=== PATIENT | male | born 1950 | race Caucasian/White ===

== ENCOUNTER 2025-02-28 16:59 | Inpatient (IN) | payer OTHER ==
--- NOTE | 2025-02-28 18:03 | EDPHYS ---
Physician Documentation [facility] Name: Jose Carlos Hurst Age: 74 yrs Sex: Male : 1950 Arrival Date: 02/28/2025 Time: 16:59 Bed 5 Private MD: ED Physician Bernard Mccord HPI: 02/28 17:42 This 74 yrs old Male presents to ER via Ambulatory with complaints of viraj Shortness Of Breath, Leg Swelling. 17:42 The patient has shortness of breath at rest, with light activity. Onset: The viraj symptoms/episode began/occurred 3 day(s) ago. Duration: The symptoms are continuous, and are unchanged since they started. The patient's shortness of breath is aggravated by walking, is alleviated by rest. Associated signs and symptoms: Pertinent positives: non-productive cough. Severity of symptoms: At their worst the symptoms were mild moderate in the emergency department the symptoms are unchanged. Historical: - Allergies: 17:11 No Known Allergies; ss - PMHx: 17:11 Hypertensive disorder; Diabetes mellitus; Agent orange exposure; CAD; High cholesterol; ss - PSHx: 17:11 Back sx; Angioplasty; ss - Immunization history:: Adult Immunizations up to date. - Infectious Disease History:: Denies. - Social history:: Smoking status: Patient denies any tobacco usage or history of. ROS: 17:43 Constitutional: Negative for fever, chills, and weight loss, Eyes: Negative for injury, viraj pain, redness, and discharge, ENT: Negative for injury, pain, and discharge, Neck: Negative for injury, pain, and swelling, Cardiovascular: Negative for chest pain, palpitations, and edema, Respiratory: Negative for shortness of breath, cough, wheezing, and pleuritic chest pain, Abdomen/GI: Negative for abdominal pain, nausea, vomiting, diarrhea, and constipation, Back: Negative for injury and pain, : Negative for injury, bleeding, discharge, and swelling, Skin: Negative for injury, rash, and discoloration, Neuro: Negative for headache, weakness, numbness, tingling, and seizure, Psych: Negative for depression, anxiety, suicide ideation, homicidal ideation, and hallucinations, Allergy/Immunology: Negative for hives, rash, and allergies, Endocrine: Negative for neck swelling, polydipsia, polyuria, polyphagia, and marked weight changes, Hematologic/Lymphatic: Negative for swollen nodes, abnormal bleeding, and unusual bruising, 17:43 MS/extremity: Positive for pain, swelling, tenderness, of the left leg, Exam: 17:43 Constitutional: This is a well developed, well nourished patient who is awake, alert, viraj and in no acute distress. Head/Face: Normocephalic, atraumatic. Eyes: Pupils equal round and reactive to light, extra-ocular motions intact. Lids and lashes normal. Conjunctiva and sclera are non-icteric and not injected. Cornea within normal limits. Periorbital areas with no swelling, redness, or edema. ENT: Nares patent. No nasal discharge, no septal abnormalities noted. Tympanic membranes are normal and external auditory canals are clear. Oropharynx with no redness, swelling, or masses, exudates, or evidence of obstruction, uvula midline. Mucous membranes moist. Neck: Trachea midline, no thyromegaly or masses palpated, and no cervical lymphadenopathy. Supple, full range of motion without nuchal rigidity, or vertebral point tenderness. No Meningismus. Chest/axilla: Normal chest wall appearance and motion. Nontender with no deformity. No lesions are appreciated. Cardiovascular: Regular rate and rhythm with a normal S1 and S2. No gallops, murmurs, or rubs. Normal PMI, no JVD. No pulse deficits. Respiratory: Lungs have equal breath sounds bilaterally, clear to auscultation and percussion. No rales, rhonchi or wheezes noted. No increased work of breathing, no retractions or nasal flaring. Abdomen/GI: Soft, non-tender, with normal bowel sounds. No distension or tympany. No guarding or rebound. No evidence of tenderness throughout. Back: No spinal tenderness. No costovertebral tenderness. Full range of motion. Male : Normal genitalia with no discharge or lesions. Skin: Warm, dry with normal turgor. Normal color with no rashes, no lesions, and no evidence of cellulitis. Neuro: Awake and alert, GCS 15, oriented to person, place, time, and situation. Cranial nerves II-XII grossly intact. Motor strength 5/5 in all extremities. Sensory grossly intact. Cerebellar exam normal. Normal gait. Psych: Awake, alert, with orientation to person, place and time. Behavior, mood, and affect are within normal limits. 17:43 ECG was reviewed by the Attending Physician. 17:43 Musculoskeletal/extremity: ROM: intact in all extremities, full active range of motion, full passive range of motion, Circulation is intact in all extremities. Sensation intact. Compartment Syndrome exam of affected extremity: is normal. Weight bearing: able to fully bear weight, DVT Exam: negative Homans' sign noted on exam, no appreciated bluish discoloration, no erythema, no increased warmth, pain, swelling, tenderness, Vital Signs: 17:08 BP 151 / 85; Pulse 100; Resp 19; Temp 98(O); Pulse Ox 98% on R/A; Weight 87.54 kg; ss Height 5 ft. 9 in. ; Pain 3/10; 19:26 BP 158 / 80; Pulse 93; Resp 20; Temp 99.3; Pulse Ox 98% on R/A; Pain 0/10; bm8 20:54 BP 156 / 75; Pulse 95; Resp 18; Temp 99.3; Pulse Ox 98% ; Pain 0/10; bm8 17:08 Body Mass Index 28.50 (87.54 kg, 175.26 cm) ss 17:08 Pain Scale: Adult ss 19:26 Pain Scale: Adult bm8 20:54 Pain Scale: Adult bm8 Homer Coma Score: 19:26 Eye Response: spontaneous(4). Motor Response: obeys commands(6). Verbal Response: bm8 oriented(5). Total: 15. 20:54 Eye Response: spontaneous(4). Motor Response: obeys commands(6). Verbal Response: bm8 oriented(5). Total: 15. MDM: 17:10 Medical Screening Exam initiated viraj 17:45 Differential diagnosis: Anemia CHF exacerbation, Chronic Obstructive Pulmonary Disease viraj Myocardial Infarction pneumonia, pulmonary edema, Pulmonary Embolism reactive airway disease, Sepsis Unstable Angina. Antibiotic administration: Not indicated. Immunization status: Pneumococcal vaccine: within last 5 years. Influenza vaccine: within last 5 years. Data reviewed: vital signs, nurses notes, lab test result(s), EKG, radiologic studies, CT scan, plain films. I considered the following discharge prescriptions or medication management in the emergency department Medications were administered in the Emergency Department. See MAR. Independent interpretation of the following test(s) in the Emergency Department EKG: See my EKG interpretation above. 18:08 ED course: DR BYRD TO CHECK LABS, CT ANGIO. [facility] 02/28 17:11 Order name: Basic Metabolic Panel; Complete Time: 18:32 [facility] 02/28 17:11 Order name: CBC with Diff; Complete Time: 18:21 [facility] 02/28 17:11 Order name: LFT's; Complete Time: 18:32 [facility] 02/28 17:11 Order name: Magnesium; Complete Time: 18:32 [facility] 02/28 17:11 Order name: NT PRO-BNP; Complete Time: 18:32 [facility] 02/28 17:11 Order name: PT-INR; Complete Time: 18:21 [facility] 02/28 17:11 Order name: Troponin HS; Complete Time: 18:32 [facility] 02/28 17:11 Order name: Lipase; Complete Time: 18:32 [facility] 02/28 17:11 Order name: Urinalysis w/ reflexes viraj 02/28 19:10 Order name: Magnesium EDMS 02/28 19:10 Order name: Phosphorus EDMS 02/28 19:10 Order name: Basic Metabolic Panel EDDE 02/28 19:10 Order name: Basic Metabolic Panel EDMS 02/28 19:10 Order name: CBC with Automated Diff EDMS 02/28 19:10 Order name: CBC with Automated Diff EDMS 02/28 19:31 Order name: Ptt, Activated bm8 02/28 17:11 Order name: XRAY Chest (1 view); Complete Time: 18:21 [facility] 02/28 17:11 Order name: US Extremity Venous W Compression Darryl; Complete Time: 18:21 viraj 02/28 17:42 Order name: CT Chest For PE Angio; Complete Time: 18:57 [facility] 02/28 18:57 Interpretation: Abnormal: PE, no right heart strain. sw6 02/28 19:11 Order name: Echo with Doppler EDDE 02/28 19:10 Order name: Physical Therapy Consult EDDE 02/28 17:11 Order name: Cardiac monitoring; Complete Time: 17:41 viraj 02/28 17:11 Order name: EKG - Nurse/Tech; Complete Time: 17:54 [facility] 02/28 17:11 Order name: IV Saline Lock; Complete Time: 17:54 [facility] 02/28 17:11 Order name: Labs collected and sent; Complete Time: 17:55 02/28 17:11 Order name: O2 Per Protocol; Complete Time: 17:41 [facility] 02/28 17:11 Order name: O2 Sat Monitoring; Complete Time: 17:41 viraj 02/28 17:11 Order name: IV Saline Lock - Large Bore; Complete Time: 17:54 viraj 02/28 17:58 Order name: Misc. Order: STRICT BED REST; Complete Time: 18:00 viraj EC:43 Rate is 104 beats/min. Rhythm is regular. QRS [place] is Normal. [place] interval is normal. viraj QRS interval is normal. QT interval is normal. No Q waves. T waves are Normal. No ST changes noted. Clinical impression: NSR w/ Non-specific ST/T Changes and LVH. Interpreted by me. Reviewed by me. Administered Medications: 18:31 Drug: Enoxaparin Sub-Q 90 mg Sub-Q once Route: Sub-Q; Site: right lower abdomen; bp 20:56 Follow up: Response: No adverse reaction bm8 18:31 Drug: Pantoprazole IVP 40 mg IVP once Route: IVP; Site: right forearm; bp 20:56 Follow up: Response: No adverse reaction bm8 18:32 Drug: Heparin (DVT/PE- Bolus per protocol) - HEParin IVP 80 units/kg IVP once; Max bp 8,000 units {Co-Signature: db (Talia Power RN).} Route: IVP; Site: right forearm; 20:56 Follow up: Response: No adverse reaction bm8 18:57 Not Given (Physician Discretion): ns 0.9% 1000 ml IV at 1000 ml once; to be given as a bp bolus over 60 minutes 18:57 Not Given (Physician Discretion): ns 0.9% 1000 ml IV at 125 ml/hr once bp 18:57 Not Given (Physician Discretion): Mucomyst - [id number] mg PO once bp Disposition: 18:30 Critical Care:. viraj Disposition Summary: 02/28/25 18:03 Hospitalization Ordered Notes: Hospitalization Status: Inpatient Admission viraj Provider: Prince viraj Tenorio Location: Telemetry/MedSurg (Inpatient) viraj Condition: Fair viraj Problem: new viraj Symptoms: are unchanged viraj Bed/Room Type: Standard [facility] Room Assignment: 221(02/28/25 19:18) ss Diagnosis - Dyspnea viraj - Acute embolism and thrombosis of deep veins of lower extremity - EXTENSIVE viraj - Unspecified kidney failure viraj - Pulmonary embolism without acute cor pulmonale sb4 Forms: - Medication Reconciliation Form viraj - SBAR form viraj - Leadership Thank You Letter viraj Critical care time excluding procedures: 18:30 Critical care time: Bedside Care: 25 minutes, Consultation: 15 minutes, Family viraj Intervention: 10 minutes. Total time: 50 minutes Signatures: Dispatcher [employer] EDMS Bernard Mccord MD MD cha Blanchard, Shelby, RN RN ss Don Kern RN RN Misty Rodriguez PAKarenC PA-C sb4 Oneli Alejandro RN RN bm8 Colette Byrd MD MD sw6 Talia Power RN db Corrections: (The following items were deleted from the chart) 17:12 17:12 BASIC METABOLIC PANEL+C.LAB.BRZ ordered. EDMS EDMS 17:12 17:12 CBC+H.LAB.BRZ ordered. EDMS EDMS 17:12 17:12 HEPATIC FUNCTION+C.LAB.BRZ ordered. EDMS EDMS 17:12 17:12 MAGNESIUM+C.LAB.BRZ ordered. EDMS EDMS 17:12 17:12 PROBNP+C.LAB.BRZ ordered. EDMS EDMS 17:12 17:12 PROTIME (+INR)+COAG.LAB.BRZ ordered. EDMS EDMS 17:12 17:12 Troponin High Sensitivity+C.LAB.BRZ ordered. EDMS EDMS 17:12 17:12 LIPASE+C.LAB.BRZ ordered. EDMS EDMS 17:12 17:12 Urinalysis+U.LAB.BRZ ordered. EDMS EDMS 17:12 17:12 Chest Single View+RAD.RAD.BRZ ordered. EDMS EDMS 17:12 17:12 Extrem Venous W Compression Darryl+US.RAD.BRZ ordered. EDMS EDMS 17:42 17:42 Chest For PE Angio+CT.RAD.BRZ ordered. EDMS EDMS 18:57 18:57 Abnormal. sw6 sw6 19:18 18:03 viraj
--- NOTE | 2025-02-28 18:03 | ER ---
Nurse's Notes [facility] Name: Jose Carlos Hurst Age: 74 yrs Sex: Male : 1950 Arrival Date: 02/28/2025 Time: 16:59 Bed 5 Private MD: Diagnosis: Dyspnea;Acute embolism and thrombosis of deep veins of lower extremity-EXTENSIVE;Unspecified kidney failure;Pulmonary embolism without acute cor pulmonale Presentation: 02/28 17:08 Chief complaint: Patient states: Cardiac cath 10 days ago. Pt reports he drove 5 hours ss 2 days ago and began experiencing swelling to his L leg. Pt also reports SOB that began yesterday. Coronavirus screen: Client denies travel out of the [place] in the last 14 days. Ebola Screen: Patient denies exposure to infectious person. Patient denies travel to an Ebola-affected area in the 21 days before illness onset. Initial Sepsis Screen: Does the patient meet any 2 criteria? No. Patient's initial sepsis screen is negative. Does the patient have a suspected source of infection? No. Patient's initial sepsis screen is negative. Risk Assessment: Do you want to hurt yourself or someone else? Patient reports no desire to harm self or others. Onset of symptoms was February 26, 2025. 17:08 Method Of Arrival: Ambulatory ss 17:08 Acuity: SINDI 3 ss Triage Assessment: 17:15 General: Appears in no apparent distress. comfortable, Behavior is calm, cooperative, bp appropriate for age. Pain: Denies pain. EENT: No deficits noted. Neuro: No deficits noted. Cardiovascular: No deficits noted. Respiratory: Reports shortness of breath Onset: The symptoms/episode began/occurred yesterday, the patient has mild shortness of breath. GI: No signs and/or symptoms were reported involving the gastrointestinal system. : No signs and/or symptoms were reported regarding the genitourinary system. Derm: No deficits noted. Musculoskeletal: Swelling present in left leg. Historical: - Allergies: 17:11 No Known Allergies; ss - PMHx: 17:11 Hypertensive disorder; Diabetes mellitus; Agent orange exposure; CAD; High cholesterol; ss - PSHx: 17:11 Back sx; Angioplasty; ss - Immunization history:: Adult Immunizations up to date. - Infectious Disease History:: Denies. - Social history:: Smoking status: Patient denies any tobacco usage or history of. Screenin:57 [facility] ED Fall Risk Assessment (Adult) History of falling in the last 3 months, bp including since admission No falls in past 3 months (0 pts) Confusion or Disorientation No (0 pts) Intoxicated or Sedated No (0 pts) Impaired Gait No (0 pts) Mobility Assist Device Used No (0 pt) Altered Elimination No (0 pt) Score/Fall Risk Level 0 - 2 = Low Risk Oriented to surroundings. Abuse screen: Denies threats or abuse. Denies injuries from another. Nutritional screening: No deficits noted. Tuberculosis screening: No symptoms or risk factors identified. Assessment: 17:15 General: Appears in no apparent distress. comfortable, Behavior is calm, cooperative, bp appropriate for age. Cardiovascular: Rhythm is sinus rhythm. Respiratory: Airway is patent Respiratory effort is even, unlabored, Breath sounds are coarse. 19:26 General: Appears in no apparent distress. comfortable, Behavior is calm, cooperative, bm8 appropriate for age. Pain: Denies pain. Neuro: No deficits noted. Level of Consciousness is awake, alert, obeys commands, Oriented to person, place, time, situation, Appropriate for age. Cardiovascular: Denies chest pain, Heart tones S1 present Murmur present Capillary refill < 3 seconds in bilateral fingers Patient's skin is warm and dry. Pulses are all present. Rhythm is sinus rhythm. Cardiovascular: Edema is 2+ to left midcalf, left ankle, left foot and left toes. Respiratory: Airway is patent Respiratory effort is even, unlabored, Respiratory pattern is regular, symmetrical, Breath sounds are coarse bilaterally. GI: No signs and/or symptoms were reported involving the gastrointestinal system. : No signs and/or symptoms were reported regarding the genitourinary system. EENT: No signs and/or symptoms were reported regarding the EENT system. Derm: No signs and/or symptoms reported regarding the dermatologic system. Musculoskeletal: No signs and/or symptoms reported regarding the musculoskeletal system. 20:54 Reassessment: Patient appears in no apparent distress at this time. Patient and/or bm8 family updated on plan of care and expected duration. Pain level reassessed. Patient is alert, oriented x 3, equal unlabored respirations, skin warm/dry/pink. Vital Signs: 17:08 BP 151 / 85; Pulse 100; Resp 19; Temp 98(O); Pulse Ox 98% on R/A; Weight 87.54 kg; ss Height 5 ft. 9 in. ; Pain 3/10; 19:26 BP 158 / 80; Pulse 93; Resp 20; Temp 99.3; Pulse Ox 98% on R/A; Pain 0/10; bm8 20:54 BP 156 / 75; Pulse 95; Resp 18; Temp 99.3; Pulse Ox 98% ; Pain 0/10; bm8 17:08 Body Mass Index 28.50 (87.54 kg, 175.26 cm) ss 17:08 Pain Scale: Adult ss 19:26 Pain Scale: Adult bm8 20:54 Pain Scale: Adult bm8 Homer Coma Score: 19:26 Eye Response: spontaneous(4). Motor Response: obeys commands(6). Verbal Response: bm8 oriented(5). Total: 15. 20:54 Eye Response: spontaneous(4). Motor Response: obeys commands(6). Verbal Response: bm8 oriented(5). Total: 15. ED Course: 17:02 Patient arrived in ED. im 17:10 Bernard Mccord MD is Attending Physician. viraj 17:11 Triage completed. ss 17:11 Arm band placed on right wrist. ss 17:38 Talia Power, RN is Primary Nurse. db 17:44 Radiology exam delayed due to lab results not completed at this time. (BUN/Creatinine) sj IV insertion attempt and/or patient not having appropriate IV at this time. 17:51 US Extremity Venous W Compression Darryl In Process Unspecified. EDMS 17:53 XRAY Chest (1 view) In Process Unspecified. EDMS 17:55 Inserted saline lock: 20 gauge in right forearm, using aseptic technique. Blood bp collected. Flushed with 10 mL NS. 17:57 Patient has correct armband on for positive identification. bp 17:59 Prince Tenorio MD is Hospitalizing Provider. viraj 18:47 CT Chest For PE Angio In Process Unspecified. EDMS 19:26 Oneil Alejandro, RN is Primary Nurse. bm8 19:26 Provided Education on: need for admission. Client placed on continuous cardiac and bm8 pulse oximetry monitoring. NIBP monitoring applied. monitoring and evaluation advisor on. Pulse ox on. NIBP on. Door closed. Noise minimized. Warm blanket given. Pillow given. Diet tray given. PO fluids given. Verbal reassurance given. Head of bed elevated. 19:26 No provider procedures requiring assistance completed. Patient admitted, IV remains in bm8 place. Administered Medications: 18:31 Drug: Enoxaparin Sub-Q 90 mg Sub-Q once Route: Sub-Q; Site: right lower abdomen; bp 20:56 Follow up: Response: No adverse reaction bm8 18:31 Drug: Pantoprazole IVP 40 mg IVP once Route: IVP; Site: right forearm; bp 20:56 Follow up: Response: No adverse reaction bm8 18:32 Drug: Heparin (DVT/PE- Bolus per protocol) - HEParin IVP 80 units/kg IVP once; Max bp 8,000 units {Co-Signature: karan (Talia Power RN).} Route: IVP; Site: right forearm; 20:56 Follow up: Response: No adverse reaction bm8 18:57 Not Given (Physician Discretion): ns 0.9% 1000 ml IV at 1000 ml once; to be given as a bp bolus over 60 minutes 18:57 Not Given (Physician Discretion): ns 0.9% 1000 ml IV at 125 ml/hr once bp 18:57 Not Given (Physician Discretion): Mucomyst - [id number] mg PO once bp Medication: 19:26 VIS not applicable for this client. bm8 Outcome: 18:03 Decision to Hospitalize by Provider. viraj 19:26 Admitted to Med/surg accompanied by nurse, via stretcher, room 221, bm8 19:26 Condition: stable 19:26 Instructed on the need for admit, Demonstrated understanding of instructions, follow-up care, 20:55 Patient left the ED. bm8 Signatures: Dispatcher [employer] EDHI Bernard Mccord MD MD cha Jones, Susan sj Blanchard, Shelby, RN RN Don Kern RN RN bp Talia Power, RN RN Paige Wagner Brad, RN RN s[place] Talia Power RN
[2025-02-28 18:04] LABS: Absolute Basophils 0.1 K/uL (0-0.5); Absolute Eosinophils 0.1 K/uL (0-0.5); Absolute Neutrophil 7.6 K/uL (1.8-8.0); Basophils % 0.6 % (0-1.3); Eosinophils % 1.2 % (0-4.4); Hematocrit 34.6 % (39.6-49.0); Hemoglobin 11.6 g/dL (13.6-17.9); Lymphocytes % 18.6 % (15.3-44.8); MCH 27.9 pg (27.0-35.0); MCHC 33.4 g/dL (32.0-36.0); MCV 83.7 fL (80-100); MPV 7.4 fL (7.6-11.3); Neutrophils % 70.6 % (41.7-73.7); Nucleated Red Blood Cells % 0.1 % (0-0); Platelets 419 thou/uL (152-406); RBC Red Blood Cell Count 4.14 M/uL (4.33-5.43); Red Cell Distribution Width 14.6 % (12.1-15.2)
[2025-02-28 18:14] LABS: Protime INR 1.06
--- NOTE | 2025-02-28 18:14 | RAD REPORT ---
EXAM: Chest Single View HISTORY: 74 years Male DYSPNEA COMPARISON: None. FINDINGS: LUNGS/PLEURA: The lungs are clear. No pleural effusions or pneumothorax. No pulmonary edema. CARDIAC/MEDIASTINUM: The cardiac silhouette is within normal limits. UPPER ABDOMEN: No significant abnormality. BONES: No acute abnormality. LINES/TUBES/OTHER: N/A IMPRESSION: No evidence of acute cardiopulmonary disease.
--- NOTE | 2025-02-28 18:14 | RAD REPORT ---
EXAMINATION: US LOWER EXTREMITY VENOUS DOPPLER BILATERAL CLINICAL INDICATION: Male, 74 years old.Pain;Swelling TECHNIQUE: Complete bilateral duplex sonography of the lower extremity veins was performed. The exami nation included compression for vein patency, color Doppler imaging and flow augmentation in response to distal compression of the distal external iliac, common femoral, femoral, popliteal, poonam millie, tibial and great saphenous veins. [id number]. COMPARISON: No prior exams FINDINGS: Duplex sonography imaging demonstrates noncompressible left common femoral vein and femoral vein cons istent with deep venous thrombosis. The remaining lower extremity veins were compressible. IMPRESSION: Positive for deep venous thrombosis in the left lower extremity involving the common femoral vein and femoral vein. The remaining interrogated veins within the left lower extremity are patent. No DVT in the right lower extremity. THIS REPORT CONTAINS FINDINGS THAT MAY BE CRITICAL TO PATIENT CARE. The emergent findings were commun icated to Dr. Mccord on 02/28/2025 6:11 PM.
[2025-02-28] MEDS ORDERED: HEPARIN 5000 UNIT/ML 1 ML VIAL ONE (18:16)
[2025-02-28] MEDS ORDERED: ENOXAPARIN 100 MG/ML SYR SQ ONE (18:16)
[2025-02-28] MEDS ORDERED: PANTOPRAZOLE 40 MG INJ ONE (18:16)
[2025-02-28 18:28] LABS: ALT/SGPT 56 U/L (16-61); AST/SGOT 40 U/L (15-37); Albumin 3.2 g/dL (3.4-5.0); Albumin/Globulin Ratio 0.8 (1.1-1.8); Alkaline Phosphatase 105 U/L (45-117); Anion Gap 11.1 mEq/L (5.0-15.0); BUN Blood Urea Nitrogen 25 mg/dL (7-18); Bicarbonate 21 mEq/L (21-32); Bilirubin Total 0.4 mg/dL (0.2-1.0); Globulin 3.8 g/dL (2.3-3.5); Glomerular Filtration Rate 42 ml/min (=/>90); Glucose Level 112 mg/dL (74-106); Lipase 53 U/L (13-75); Magnesium 1.9 mg/dL (1.6-2.4); NT PRO-BNP 3666 pg/mL (<450); Potassium 4.1 mEq/L (3.5-5.1); Sodium Level 138 mEq/L (136-145); Troponin High Sensitivity 27.3 pg/mL (<58.9)
[2025-02-28 18:30] LABS: Bilirubin Direct < 0.2 mg/dL (0-0.2); Bilirubin Indirect, Calculated 0.2 mg/dL (0.2-0.8)
--- NOTE | 2025-02-28 18:54 | RAD REPORT ---
EXAMINATION: CTA CHEST PE CLINICAL INDICATION: Male, 74 years old. DYSPNEA TECHNIQUE: This examination was performed according to an angiographic protocol with 3D post-processi ng. This involves 3D reconstructions, MIPs, volume rendered images and/or shaded surface rendering. One or more of the following dose reduction techniques were used: Automated exposure control, adjustm ent of the mA and/or kV according to patient size, and/or iterative reconstruction. Unless otherwise specified, incidental findings do not require dedicated imaging follow-up. [id number]. COMPARISON: Same day chest radiograph. FINDINGS: LOWER NECK: Visualized thyroid gland and soft tissues are normal. MEDIASTINUM AND LYMPH NODES: No mediastinal mass or fluid collection. Normal size mediastinal, hilar, and axillary lymph nodes. THORACIC AORTA: No thoracic aortic aneurysm. PULMONARY ARTERIES: Caliber is within normal limits. Positive for pulmonary embolism with mild to mod erate clot burden. There is clot in the right upper and right lower lobar and segmental branches as well as segmental branches to the left upper lobe and left lower lobe. No saddle pulmonary embolus. HEART: Normal heart size. Moderate coronary artery calcifications.No significant pericardial effusion . Aortic valve and mitral annular calcifications. LUNGS AND AIRWAYS: Airways are clear. No evidence of airspace or interstitial process.No suspicious a nd/or stable pulmonary nodules. Note that portions of the lung bases were not included in the [id number]. PLEURA: No pleural effusions. No pneumothorax. OSSEOUS STRUCTURES AND CHEST WALL: UPPER ABDOMEN: No acute abnormalities. IMPRESSION: Positive for pulmonary embolism with mild to moderate clot burden. No findings to indicate right hear t strain. THIS REPORT CONTAINS FINDINGS THAT MAY BE CRITICAL TO PATIENT CARE. The emergent findings were commun icated to Dr. Mccord on 02/28/2025 6:45 PM.
[2025-02-28] MEDS ORDERED: ACETAMINOPHEN 500 MG TAB PO PRN (19:05)
[2025-02-28] MEDS ORDERED: ALBUTEROL 2.5 MG/3 ML NEB SOL NEB PRN (19:05)
[2025-02-28] MEDS ORDERED: IPRATROPIUM BROM 0.5MG/2.5ML NEB PRN (19:05)
[2025-02-28] MEDS ORDERED: ONDANSETRON 4 MG/2 ML VIAL IV PRN (19:05)
[2025-02-28] MEDS: PANTOPRAZOLE 40 MG INJ IVP SCH (19:12)
[2025-02-28] MEDS ORDERED: SODIUM CHLORIDE 0.9% 10ML INJ IV PRN (19:12)
--- NOTE | 2025-02-28 19:12 | P.HP ---
Certification for Inpatient Patient admitted to: Inpatient With expected LOS: >2 Midnights Practitioner: I am a practitioner with admitting privileges, knowledge of patient current condition, hospital course, and medical plan of care. Services: Services provided to patient in accordance with Admission requirements found in Title 42 Section 412.3 of the Code of Federal Regulations Patient History Date of Service: 02/28/25 Reason for admission: DVT/PE History of Present Illness: Patient is a 74-year-old male who was brought into the hospital after he presented with shortness of breath and left lower extremity pain. He has been found to have an extensive left lower extremity DVT involving the common femoral vein and femoral vein. CT angio of the chest also revealed a pulmonary embolism with mild to moderate clot burden. Patient received Lovenox in the ER. ER discussed case with cardiology, Dr. Ruelas. Patient is being admitted. Of note, patient has a history of hypertension, type 2 diabetes mellitus, hyperlipidemia and coronary disease status post PCI. He had 9 stents with a recent one placed 9 days ago and another one 6 days before that. He is cu rrently on dual antiplatelet therapy. During my evaluation in the ER, patient was alert and awake and hemodynamically stable. He is on room air. Physical Examination - Physical Exam General: In no apparent distress, Cooperative HEENT: Atraumatic, Normocephalic Cardiovascular: Normal pulses, Regular rate/rhythm, Normal S1 S2, Edema (Left lower extremity edema), Systolic murmur Neurological: Normal speech, Cranial nerves 3-12 intact - Studies Laboratory Data (last 24 hrs) 02/28/25 02/28/25 02/28/25 17:55 17:55 17:55 WBC 10.80 Hgb 11.6 L Hct 34.6 L Plt Count 419 H PT 12.0 INR 1.06 Sodium 138 Potassium 4.1 BUN 25 H Creatinine 1.70 H Glucose 112 H Magnesium 1.9 Total Bilirubin 0.4 AST 40 H ALT 56 Alkaline Phosphatase 105 Lipase 53 Assessment and Plan - Problems (Diagnosis) (1) DVT (deep venous thrombosis) Current Visit: Yes Status: Acute (2) Pulmonary embolus Current Visit: Yes Status: Acute - Plan Assessment Is a 74-year-old male who is being admitted after he presented with dyspnea and chest pain. He has been found to have extensive left lower extremity DVT and pulmonary embolism with mild to moderate clot burden. Patient is hemodynamically stable and on room air. DVT/PE BRIDGET Coronary artery disease status post PCI, currently on dual antiplatelet therapy Hypertension Type 2 diabetes mellitus Hyperlipidemia Agent orange exposure Plan: Will admit inpatient with telemetry Start patient on heparin infusion IV fluid 2D echo to assess for clot burden Repeat BMP tomorrow PPI for GI prophylaxis Patient is at high risk for bleeding now triple therapy He will benefit from cardiology evaluation for medication reconciliation - Advance Directives Does patient have a Living Will: No Does patient have a Durable POA for Healthcare: No
[2025-02-28 20:19] VITALS: BMI 28.5
[2025-02-28] MEDS: NA CHLORIDE 0.9% 1,000 ML IV SCH (21:25)
[2025-03-01 00:56] LABS: Specific Gravity 1.023 (1.005-1.030); Urine Bilirubin NEGATIVE (Negative); Urine Blood Negative (Negative); Urine Clarity Clear (Clear); Urine Color Colorless (Yellow); Urine Glucose NEGATIVE (Negative); Urine Ketones NEGATIVE (Negative); Urine Microscopic Reflex YN NO UMIC; Urine Nitrite NEGATIVE (Negative); Urine Protein NEGATIVE (Negative); Urine Urobilinogen Normal (Normal)
[2025-03-01] MEDS: HEPARIN/D5W 25,000 UNIT/500 ML BAG IV SCH (05:58)
[2025-03-01 06:48] LABS: Absolute Basophils 0.1 K/uL (0-0.5); Absolute Eosinophils 0.4 K/uL (0-0.5); Absolute Lymphocytes (CBC) 2.9 K/uL (0.7-4.9); Absolute Monocytes 1.2 K/uL (0.1-1.3); Absolute Neutrophil 6.2 K/uL (1.8-8.0); Basophils % 0.7 % (0-1.3); Hematocrit 32.5 % (39.6-49.0); Lymphocytes % 26.6 % (15.3-44.8); MCH 28.1 pg (27.0-35.0); MCHC 33.8 g/dL (32.0-36.0); MPV 7.9 fL (7.6-11.3); Monocytes % 10.8 % (3.3-12.3); Neutrophils % 57.9 % (41.7-73.7); Nucleated Red Blood Cells % 0.1 % (0-0); Platelets 389 thou/uL (152-406); RBC Red Blood Cell Count 3.92 M/uL (4.33-5.43); Red Cell Distribution Width 14.9 % (12.1-15.2)
[2025-03-01 07:05] LABS: Anion Gap 10.7 mEq/L (5.0-15.0); Magnesium 1.9 mg/dL (1.6-2.4); Phosphorus 3.4 mg/dL (2.5-4.9); Potassium 3.7 mEq/L (3.5-5.1)
[2025-03-01] MEDS: ASPIRIN 81 MG CHEWABLE TABLET PO SCH (08:55)
[2025-03-01] MEDS: CLOPIDOGREL 75 MG TABLET PO SCH (08:55)
[2025-03-01] MEDS: METOPROLOL TAR 25 MG TAB PO SCH (08:55)
[2025-03-01] MEDS: VALSARTAN 160 MG TAB PO SCH (08:55)
--- NOTE | 2025-03-01 12:18 | P.PN ---
Date of Service: 03/01/25 Subjective: No new complaint. Denies fevers and chills. Resting comfortably in bed. States his pain is very minimal. He has minor groin pain rated 2 out of 10. He is tolerating a diet. His and daughter at bedside. Review of systems" As per HPI 10 point review systems otherwise negative Physical Examination - Physical Exam General: In no apparent distress, Cooperative HEENT: Atraumatic, Normocephalic Cardiovascular: Normal pulses, Regular rate/rhythm, Normal S1 S2, Edema (Left lower extremity edema), Systolic murmur Neurological: Normal speech, Cranial nerves 3-12 intact - Studies Laboratory Data (last 24 hrs) 02/28/25 02/28/25 02/28/25 17:55 17:55 17:55 WBC 10.80 Hgb 11.6 L Hct 34.6 L Plt Count 419 H PT 12.0 INR 1.06 Sodium 138 Potassium 4.1 BUN 25 H Creatinine 1.70 H Glucose 112 H Magnesium 1.9 Total Bilirubin 0.4 AST 40 H ALT 56 Alkaline Phosphatase 105 Lipase 53 Assessment and Plan - Problems (Diagnosis) (1) DVT (deep venous thrombosis) Current Visit: Yes Status: Acute (2) Pulmonary embolus Current Visit: Yes Status: Acute - Plan Assessment Is a 74-year-old male who is being admitted after he presented with dyspnea and chest pain. He has been found to have extensive left lower extremity DVT and pulmonary embolism with mild to moderate clot burden. Patient is hemodynamically stable and on room air. DVT/PE BRIDGET Coronary artery disease status post PCI, currently on dual antiplatelet therapy Hypertension Type 2 diabetes mellitus Hyperlipidemia Agent orange exposure Plan: Switch to Eliquis 10 mg twice daily for 2 weeks then 5 mg twice daily thereon a fter Restart Plavix in 2 weeks IV fluids No right heart strain on echo Appreciate cardiology recommendation Acute kidney injury resolved PPI for GI prophylaxis Continue aspirin and stop after 2-week - Advance Directives Does patient have a Living Will: No Does patient have a Durable POA for Healthcare: No
--- NOTE | 2025-03-01 12:50 | CON ---
Date of Consultation: 03/01/2025 Reason For Consultation: Pulmonary embolism. History Of Present Illness: A 74-year-old male with history of coronary artery disease, multiple PCI s. Last stent was about 2 weeks ago to the left circumflex. He is on aspirin and Plavix, comes in w ith shortness of breath and swelling of lower extremity, found to have a significant DVT and mild-to- moderate pulmonary embolism. Started him on Lovenox and saw him by bedside. He is doing clinically well. No shortness of breath at rest and echo did not show any right ventricular strain and he lives in [place] and has a glass etcher helper there. Past Medical History: Coronary artery disease, dyslipidemia, hypertension, diabetes, peripheral vasc ular disease. Medications: Refer reconciliation sheet for detailed list. Allergies: NO KNOWN DRUG ALLERGIES. Family History: No premature coronary artery disease or cancer. Social History: Does not smoke or drink. Does not use any drugs. Review of Systems: All systems reviewed are negative except for mentioned in HPI. Physical Examination: Vital Signs: Reviewed. Head and Neck: Pupils are equal, reactive to light. Intact eye movements. No JVD, no cervical lymp hadenopathy. Neck is supple. Thyroid is not enlarged. Lungs: Clear to auscultation bilaterally. No rhonchi, wheezing, or crackles. No accessory muscle u se. Heart: Regular rate and rhythm. No extra sounds. Abdomen: Soft, nontender. Bowel sounds positive. No organomegaly. No masses or hernia. No rigidi ty or rebound. Extremities: No edema, clubbing, cyanosis. Intact pulses. Skin: No rash. No nodules. Neurologic: Alert, awake, and oriented x3. No acute focal deficits appreciated. Investigations: 1. Venous ultrasound showed deep vein thrombosis involving the common femoral vein and superficial fe moral vein. 2. CT scan of the chest showed pulmonary embolism, mild to moderate clot burden and echo, no RV strai n. Assessment/recommendation: 1. Deep venous trombosis of left lower extremity, on Lovenox. The patient can be switched to Eliquis , load with 10 mg twice a day for the next 2 weeks and then 5 mg twice a day afterwards and there is no good provoking reason for him to have the DVT, so likely has clotting disorder and he should be on anticoagulation for rest of his life. 2. Coronary artery disease, recent stent was placed and he is on aspirin, Plavix. Asked him to ellen nue the aspirin for another 2 weeks and then to drop it off. Continue the Plavix while the Eliquis i s on board, but to do that in 2 weeks from now. 3. Elevated NT-proBNP. This is congestive heart failure on the echo. There is normal ejection fract ion. This is diastolic dysfunction but no fluid overload condition right now. Low-salt diet encoura ged and monitor clinically. 4. Acute renal failure, responded very well to IV fluids and creatinine is normal today. The patient has a glass etcher helper as an outpatient. I will sign off on his case and to follow up with his primary care physician and primary glass etcher helper post discharge. Thank you for the consult. /LAURA Voice ID: [id number] Report ID: [id number]
[2025-03-01] MEDS ORDERED: ALBUTEROL 2.5 MG/3 ML NEB SOL NEB PRN (13:01)
--- NOTE | 2025-03-01 13:43 | ECHO ---
HEIGHT: 5 ft 9 in WEIGHT: 192 lb 14.472 oz DATE OF STUDY: 03/01/[address]: Prince Roque Tenorio MD 2-DIMENSIONAL: YES M.MODE: YES DOPPLER: YES COLOR FLOW: YES TDS: PORTABLE: YES DEFINITY: BUBBLE STUDY: DIAGNOSIS: PULMONARY EMBOLISM CARDIAC HISTORY: CATHERIZATION: YES SURGERY: NO PROSTHETIC VALVE: NO PACEMAKER: NO MEASUREMENTS (cm) DIASTOLIC (NORMALS) SYSTOLIC (NORMALS) IVSd 1.2 (0.6-1.2) LA Diam 3.4 (1.9-4.0) LVEF 55-60% LVIDd 4.2 (3.5-5.7) LVIDs 3.0 (2.0-3.5) %FS 28% LVPWd 1.3 (0.6-1.2) Ao Diam 3.1 (2.0-3.7) 2 DIMENSIONAL ASSESSMENT: RIGHT ATRIUM: NORMAL LEFT ATRIUM: NORMAL RIGHT VENTRICLE: NORMAL LEFT VENTRICLE: MILD LEFT VENTRICULAR HYPERTROPHY TRICUSPID VALVE: TRACE TRICUSPID REGURGITATION MITRAL VALVE: MILD MITRAL REGURGITATION PULMONIC VALVE: NORMAL AORTIC VALVE: MILD AORTIC STENOSIS PERICARDIAL EFFUSION: NONE AORTIC ROOT: NORMAL LEFT VENTRICULAR WALL MOTION: NORMAL DOPPLER/COLOR FLOW: SEE BELOW COMMENTS: 1. NORMAL LEFT VENTRICULAR EJECTION FRACTION 55-60% 2. MILD CONCENTRIC LEFT VENTRICULAR HYPERTROPHY 3. GRADE I DIASTOLIC DYSFUNCTION 4. NORMAL RIGHT VENTRICULAR SIZE AND FUNCTION 5. CALCIFIED AORTIC VALVE WITH MILD AORTIC STENOSIS AND MILD AORTIC INSUFFICIENCY 6. MILD MITRAL ANNULAR CALCIFICATION WITH MILD MITRAL REGUGITATION TECHNOLOGIST: CHA BYRD
[2025-03-01] MEDS: ROSUVASTATIN 10 MG TAB PO SCH (21:41)
[2025-03-01] MEDS: APIXABAN 5 MG TABLET PO SCH (21:41)
[2025-03-01] MEDS ORDERED: HYDRALAZINE HCL 20 MG/ML VIAL IV PRN (22:29)
[2025-03-01] MEDS: GUAIFENESIN 600 MG SA TAB PO SCH (22:54)
[2025-03-01] MEDS: BENZONATATE 100 MG CAP PO SCH (22:55)
[2025-03-02 00:19] VITALS: O2SAT 95
[2025-03-02] MEDS: GUAIFENESIN 600 MG SA TAB PO SCH (10:00)
--- NOTE | 2025-03-02 15:24 | P.PN ---
Date of Service: 03/02/25 Subjective Reports edema to left leg yesterday, edema is decreased this morning No new complaint ROS 10 point ROS as noted above, otherwise negative General: AAOx3, NAD HEENT: MMM, nare normal Head/Neck: Normocephalic, atraumatic, neck supple Respiratory: symmetrical chest expansion, lungs clear on auscultation, on room air Cardiac: RRR, systolic murmur noted, S1-S2 present Extremities: No edema present, peripheral pulses 2+ Abdominal: soft, NT/ND Skin: warm pink and dry Neurological: clear speech, appropriate Vitals Reviewed Problem list DVT/PE BRIDGET Coronary artery disease status post PCI, currently on dual antiplatelet therapy Hypertension Type 2 diabetes mellitus Hyperlipidemia Agent orange exposure Assessment and Plan DVT/PE Switch to Eliquis 10 mg twice daily for 2 weeks then 5 mg twice daily thereon after Restart Plavix in 2 weeks Continue aspirin and stop after 2-week No right heart strain on echo Appreciate cardiology recommendation BRIDGET IV fluids Acute kidney injury resolved Coronary artery disease status post PCI, currently on dual antiplatelet therapy Hypertension Type 2 diabetes mellitus Hyperlipidemia Agent orange exposure - Continue home medication DVT ppx Eliquis Full Code LOS 2 days Time Spent Managing Pts Care (In Minutes): 35 <Angella Levi - Last Filed: 03/02/25 15:14> I have personally reviewed and discussed the patient's history, physical exam findings, assessment, and plan as documented by Brigitte Levi NP. I confirmed the accuracy of the information and agree with the management of the plan as outlined Shilo Anguiano <Shilo Anguiano - Last Filed: 03/02/25 15:46>
--- NOTE | 2025-03-02 15:40 | P.DS ---
Admission Date: 02/28/25 Discharge Date: 03/02/25 Reason for Admission: DVT/PE Brief History of Present Illness: Diagnosis DVT/PE BRIDGET Coronary artery disease status post PCI, currently on dual antiplatelet therapy Hypertension Type 2 diabetes mellitus Hyperlipidemia Agent orange exposure HPI 02/28/2025 Patient is a 74-year-old male who was brought into the hospital after he presented with shortness of breath and left lower extremity pain. He has been found to have an extensive left lower extremity DVT involving the common femoral vein and femoral vein. CT angio of the chest also revealed a pulmonary embolism with mild to moderate clot burden. Patient received Lovenox in the ER. ER discussed case with cardiology, Dr. Ruelas. Patient is being admitted. Of note, patient has a history of hypertension, type 2 diabetes mellitus, hyperli pidemia and coronary disease status post PCI. He had 9 stents with a recent one placed 9 days ago and another one 6 days before that. He is currently on dual antiplatelet therapy. During my evaluation in the ER, patient was alert and awake and hemodynamically stable. He is on room air. Hospital Course: Jose Carlos was admitted and treated for swelling to his left leg finding a DVT. CT angio finding a PE present with mild to moderate clot burden, echocardiogram report cleared of right ventricular strain. He has tolerated Eliquis 10 mg twice daily and will continue a specific regiment outpatient. Eliquis 10 mg twice daily x 14 days then transition to Eliquis 5 mg twice daily for 30 days. Follow-up with Dr. Ruelas for continued monitoring and management. He will continue Eliquis dosing with Plavix dosing and aspirin. On 03/02/2025, Jose Carlos was seen on morning rounds hemodynamically stable and left leg swelling has greatly reduced. Dr. Ruelas has evaluated and cleared for discharge. Eliquis and Plavix prescribed. General: AAOx3, NAD HEENT: MMM, nare normal Head/Neck: Normocephalic, atraumatic, neck supple Respiratory: symmetrical chest expansion, lungs clear on auscultation, on room air Cardiac: RRR, systolic murmur noted, S1-S2 present Extremities: No edema present, peripheral pulses 2+ Abdominal: soft, NT/ND Skin: warm pink and dry Neurological: clear speech, appropriate <Angella Levi - Last Filed: 03/02/25 15:35> Admission Date: 02/28/25 Discharge Date: 03/02/25 <Shilo Anguiano - Last Filed: 03/02/25 16:36> Disposition: ROUTINE DISCHARGE Discharge Condition: GOOD Vital Signs/Physical Exam: Temp Pulse Resp BP Pulse Ox 98.1 F 71 16 160/76 H 93 03/02/25 12:00 03/02/25 12:00 03/02/25 12:00 03/02/25 12:00 03/02/25 12:00 Laboratory Data at Discharge: WBC 10.80 thou/uL (4.3-10.9) 03/01/25 06:24 Hgb 11.0 g/dL (13.6-17.9) L 03/01/25 06:24 Hct 32.5 % (39.6-49.0) L 03/01/25 06:24 Plt Count 389 thou/uL (152-406) 03/01/25 06:24 PT 12.0 SECONDS (10-13.0) 02/28/25 17:55 INR 1.06 02/28/25 17:55 APTT 65.5 SECONDS (27.2-37.4) H 03/01/25 13:41 Sodium 139 mEq/L (136-145) 03/01/25 06:24 Potassium 3.7 mEq/L (3.5-5.1) 03/01/25 06:24 BUN 17 mg/dL (7-18) 03/01/25 06:24 Creatinine 1.26 mg/dL (0.70-1.30) 03/01/25 06:24 Glucose 115 mg/dL (74-106) H 03/01/25 06:24 Phosphorus 3.4 mg/dL (2.5-4.9) 03/01/25 06:24 Magnesium 1.9 mg/dL (1.6-2.4) 03/01/25 06:24 Total Bilirubin 0.4 mg/dL (0.2-1.0) 02/28/25 17:55 AST 40 U/L (15-37) H 02/28/25 17:55 ALT 56 U/L (16-61) 02/28/25 17:55 Alkaline Phosphatase 105 U/L (45-117) 02/28/25 17:55 Lipase 53 U/L (13-75) 02/28/25 17:55 <Angella Levi - Last Filed: 03/02/25 15:35> Vital Signs/Physical Exam: Temp Pulse Resp BP Pulse Ox 98.4 F 78 16 156/78 H 97 03/02/25 16:00 03/02/25 16:00 03/02/25 16:00 03/02/25 16:00 03/02/25 16:00 Laboratory Data at Discharge: WBC 10.80 thou/uL (4.3-10.9) 03/01/25 06:24 Hgb 11.0 g/dL (13.6-17.9) L 03/01/25 06:24 Hct 32.5 % (39.6-49.0) L 03/01/25 06:24 Plt Count 389 thou/uL (152-406) 03/01/25 06:24 PT 12.0 SECONDS (10-13.0) 02/28/25 17:55 INR 1.06 02/28/25 17:55 APTT 65.5 SECONDS (27.2-37.4) H 03/01/25 13:41 Sodium 139 mEq/L (136-145) 03/01/25 06:24 Potassium 3.7 mEq/L (3.5-5.1) 03/01/25 06:24 BUN 17 mg/dL (7-18) 03/01/25 06:24 Creatinine 1.26 mg/dL (0.70-1.30) 03/01/25 06:24 Glucose 115 mg/dL (74-106) H 03/01/25 06:24 Phosphorus 3.4 mg/dL (2.5-4.9) 03/01/25 06:24 Magnesium 1.9 mg/dL (1.6-2.4) 03/01/25 06:24 Total Bilirubin 0.4 mg/dL (0.2-1.0) 02/28/25 17:55 AST 40 U/L (15-37) H 02/28/25 17:55 ALT 56 U/L (16-61) 02/28/25 17:55 Alkaline Phosphatase 105 U/L (45-117) 02/28/25 17:55 Lipase 53 U/L (13-75) 02/28/25 17:55 <Shilo Anguiano - Last Filed: 03/02/25 16:36> Diet: AHA Activity: Ad tatyana <Angella Levi - Last Filed: 03/02/25 15:35> Physician Review: Patient Assessed, Agree with Above Assessment and Plan <Shilo Anguiano - Last Filed: 03/02/25 16:36> Home Medications: Aspirin Chewable [Aspirin Chewable*] 81 mg PO DAILY 02/28/25 Cholecalciferol (Vitamin D3) [Vitamin D 5,000 IU Cap*] 5,000 unit PO BEDTIME 02/28/25 Clopidogrel Bisulfate [Plavix*] 75 mg PO DAILY 02/28/25 Ferrous Gluconate 324 mg PO BEDTIME 02/28/25 Krill/Om-3/Dha/Epa/Phospho/Ast [Krill Oil 500 mg Softgel] 1 each PO DAILY 02/28/25 Mecobalamin [B12 Active] 1,000 mcg PO BEDTIME 02/28/25 Metformin HCl 1,000 mg PO BIDWM 02/28/25 Metoprolol Tartrate [Lopressor*] 12.5 mg PO BID 02/28/25 Ranolazine [Ranolazine ER] 1,000 mg PO BID 02/28/25 Rosuvastatin Calcium [Crestor] 40 mg PO BEDTIME 02/28/25 Ubidecarenone [Co Q-10] 100 mg PO BID 02/28/25 Valsartan [Diovan*] 160 mg PO BID 02/28/25 Apixaban [Eliquis] 10 mg PO BID 44 Days #86 tab 03/02/25 Benzonatate [Tessalon Perle*] 100 mg PO TID 5 Days #15 cap 03/02/25 Clopidogrel Bisulfate [Plavix] 75 mg PO DAILY 30 Days #30 tab 03/02/25 New Medications: Apixaban [Eliquis] 10 mg PO BID 44 Days #86 tab Clopidogrel Bisulfate [Plavix] 75 mg PO DAILY 30 Days #30 tab Benzonatate [Tessalon Perle*] 100 mg PO TID 5 Days #15 cap Physician Discharge Instructions: 1. Please call and schedule a follow-up appointment with your PCP in 3-5 days - Please follow-up with your PCP for medication refills/adjustments 2. Please call and schedule a follow-up appointment with Dr. Ruelas in 1 week 3. Continue heart healthy diet 4. No activity restrictions 5. Return to the ED if symptoms worsen New medications Eliquis 10 mg twice daily x 14 days, then dose will reduce to Eliquis 5 mg twice daily until further notice Plavix 75 mg daily to be started after 14-day of Eliquis 10 mg dosing has finished, you will be taking Plavix 75 mg daily and Eliquis 5 mg twice daily at the same time Followup: [facility] [Primary Care Provider] - Dilip Ruelas MD [ACTIVE - CAN ADMIT] -
[2025-03-02 16:22] VITALS: BP 156/78; TEMP 98.4
--- NOTE | 2025-03-04 12:21 | EKG ---
Test Date: 2025-02-28 Test Time: 17:29:01 Np: YARITZA MEASUREMENT RESULTS: Intervals: Rate: 104 SD: 172 QRSD: 138 QT: 372 QTc: 489 [place]: P: 65 SD: 172 QRS: -53 T: 15 INTERPRETIVE STATEMENTS: Sinus tachycardia with frequent premature ventricular complexes Left axis deviation Right bundle branch block Minimal voltage criteria for LVH, may be normal variant Abnormal ECG No previous ECG available for comparison Electronically Signed On 03-04-25 12:11:25 CDT by Ammon Archer
== END 2025-03-02 17:34 | disposition home or self-care (01) | DRG 299 ==
LOC: ER 16:59 → ERHOLD 19:05 → 2ND 20:46
PROVIDERS: ADMIT Internal Medicine; ATTEND Family Medicine
DX: I82.412 Acute embolism and thrombosis of left femoral vein (principal); I26.99 Other pulmonary embolism without acute cor pulmonale; N17.9 Acute kidney failure, unspecified; I10 Essential (primary) hypertension; E78.00 Pure hypercholesterolemia, unspecified; E11.51 Type 2 diabetes mellitus with diabetic peripheral angiopathy without gangrene; I25.10 Atherosclerotic heart disease of native coronary artery without angina pectoris; Z95.1 Presence of aortocoronary bypass graft; Z95.5 Presence of coronary angioplasty implant and graft; Z79.82 Long term (current) use of aspirin; Z79.02 Long term (current) use of antithrombotics/antiplatelets; Z79.84 Long term (current) use of oral hypoglycemic drugs; Z79.01 Long term (current) use of anticoagulants; Z79.899 Other long term (current) drug therapy
CPT/HCPCS: 36415; 71045; 71275; 80048; 80076; 81003; 82947; 83690; 83735; 83880; 84100; 84484; 85025; 85610; 85730; 93005; 93306; 93970; 96372; 96374; 96375; 97116; 97161; 99285; J1644; J1650; J2470; J7030; Q9967